=== PATIENT | male | born 1995 | race Caucasian/White ===

== ENCOUNTER 2019-08-20 19:00 | Emergency (ER) | payer BC, MEDICAID ==
[~2019-08-20] VITALS: Ht 167.6 cm; Wt 69.0 kg
[2019-08-20 19:07] VITALS: BP 143/92
[2019-08-20] MEDS ORDERED: NAPR-56 PO (19:40)
[2019-08-20] MEDS ORDERED: HYDROcodone/acetaminophen 10/325mg tab PO ONE (19:40)
[2019-08-20] MEDS ORDERED: PENI250T2 PO (19:40)
== END 2019-08-20 20:07 | disposition home or self-care (01) ==
LOC: ER 19:01
DX: K08.89 Other specified disorders of teeth and supporting structures (principal); R22.0 Localized swelling, mass and lump, head
CPT/HCPCS: 99283

== ENCOUNTER 2019-11-27 17:22 | Emergency (ER) | payer MEDICAID ==
[~2019-11-27] VITALS: Ht 167.6 cm; Wt 79.5 kg
[2019-11-27 17:28] VITALS: BP 136/85
[2019-11-27] MEDS ORDERED: AMOX-422 PO (18:03)
== END 2019-11-27 18:34 | disposition home or self-care (01) ==
LOC: ER 17:22
DX: K08.89 Other specified disorders of teeth and supporting structures (principal)
CPT/HCPCS: 99283

== ENCOUNTER 2019-11-30 07:53 | Emergency (ER) | payer MEDICAID ==
[~2019-11-30] VITALS: Ht 167.6 cm; Wt 72.7 kg
[~2019-11-30 07:53] MED LIST: AMOX-422 PO
[2019-11-30 07:55] VITALS: BP 139/81
[2019-11-30] MEDS ORDERED: TRAM50TA2 PO (08:28)
== END 2019-11-30 08:39 | disposition home or self-care (01) ==
LOC: ER 07:53
DX: K08.89 Other specified disorders of teeth and supporting structures (principal); Z79.2 Long term (current) use of antibiotics; Z79.899 Other long term (current) drug therapy
CPT/HCPCS: 99283

== ENCOUNTER 2020-11-29 08:38 | Emergency (ER) | payer MEDICAID ==
[~2020-11-29] VITALS: Ht 167.6 cm; Wt 77.3 kg
[2020-11-29 08:39] VITALS: BP 131/90
[2020-11-29] MEDS ORDERED: MELO7.5T12 PO (09:18)
[2020-11-29] MEDS ORDERED: morphine 4 MG/ML inj SYRINge IM ONE (09:20)
== END 2020-11-29 09:49 | disposition home or self-care (01) ==
LOC: ER 08:38
DX: S46.011A Strain of muscle(s) and tendon(s) of the rotator cuff of right shoulder, initial encounter (principal); M25.511 Pain in right shoulder; Z86.69 Personal history of other diseases of the nervous system and sense organs; Z79.899 Other long term (current) drug therapy; X58.XXXA Exposure to other specified factors, initial encounter; Y93.89 Activity, other specified; Y92.89 Other specified places as the place of occurrence of the external cause; Y99.8 Other external cause status
CPT/HCPCS: 73030; 96372; 99284; J2270

== ENCOUNTER 2020-12-19 15:07 | Emergency (ER) | payer MEDICAID ==
[~2020-12-19] VITALS: Ht 167.6 cm; Wt 68.0 kg
[~2020-12-19 15:07] MED LIST changes: -AMOX-422 PO; +LIDOcaine 1% w/epiNEPHrine 1:200,000 30ml vial ONE; +MELO7.5T12 PO
[2020-12-19 15:09] VITALS: BP 121/57
[2020-12-19] MEDS ORDERED: TETanus/Pertussis (Acell)/Diphther VAC/PF (Tdap-Adult) 0.5ml syringe IMVAC ONE (15:35)
[2020-12-19] MEDS ORDERED: mupirocin 2% ointment 22GM TP ONE (16:05)
[2020-12-19] MEDS ORDERED: SULF1TAB49 PO (16:06)
== END 2020-12-19 16:23 | disposition home or self-care (01) ==
LOC: ER 15:08
DX: L02.213 Cutaneous abscess of chest wall (principal); Z20.3 Contact with and (suspected) exposure to rabies; Z86.69 Personal history of other diseases of the nervous system and sense organs; Z79.2 Long term (current) use of antibiotics; Z79.899 Other long term (current) drug therapy
CPT/HCPCS: 10060; 90471; 90715; 99283

== ENCOUNTER 2024-06-23 13:07 | Emergency (ER) | payer MEDICAID ==
[~2024-06-23] VITALS: Ht 167.6 cm; Wt 74.4 kg
[~2024-06-23 13:07] MED LIST changes: -LIDOcaine 1% w/epiNEPHrine 1:200,000 30ml vial ONE
[2024-06-23 15:24] VITALS: BP 120/79; PULSE 54; RESP 16; TEMP 98.9; O2SAT 98
== END 2024-06-23 15:27 | disposition home or self-care (01) ==
LOC: ER 13:08
DX: G40.909 Epilepsy, unspecified, not intractable, without status epilepticus (principal); Z79.2 Long term (current) use of antibiotics
CPT/HCPCS: 99284